=== PATIENT | female | born 1995 | race Caucasian/White ===

== ENCOUNTER 2017-09-30 12:55 | Observation (INO) | payer OTHER ==
[~2017-09-30 12:55] MED LIST: ROCURONIUM BROMIDE INJ 50 MG/5 ML VIAL IV ONE; SUCCINYLCHOLINE CHLORIDE INJ 200 MG/10 ML VIAL ONE
--- NOTE | 2017-09-30 13:57 | ER Document Report ---
ED Medical Screen (RME) - General Chief Complaint: Abdominal Pain Stated Complaint: ABDOMINAL PAIN,NAUSEA Time Seen by Provider: 09/30/17 13:53 TRAVEL OUTSIDE OF THE [place] IN LAST 30 DAYS: No - HPI Patient complains to provider of: Right-sided pain Onset: Other - 21-year-old female with a history of no known medical problems the presents for evaluation of pain along the right side which developed yesterday after eating with some associated nausea and episodes of emesis. Through the night the pain seems to intensify to her and she has had difficulty in eating or drinking it has not changed the character of her pain however. She denies any previous episodes like this. Nothing is seemed to make it any better. She has not taken anything to try and make it better. Denies any past surgical history. Denies fevers or chills - Related Data Allergies/Adverse Reactions: No Known Allergies Allergy (Verified 09/30/17 12:55) Past Medical History - Social History Chew tobacco use (# tins/day): No Frequency of alcohol use: Occasional Drug Abuse: None - Past Medical History Cardiac Medical History: Reports: Hx Hypertension Renal/ Medical History: Denies: Hx Peritoneal Dialysis - Immunizations Immunizations up to date: Yes Hx Diphtheria, Pertussis, Tetanus Vaccination: Yes Physical Exam - Vital signs Vitals: Temp Pulse Resp BP Pulse Ox 99.2 F 101 H 18 122/77 98 09/30/17 13:08 09/30/17 13:08 09/30/17 13:08 09/30/17 13:08 09/30/17 13:08 Course - Re-evaluation Re-evalutation: 09/30/17 13:56 This is a 21-year-old female presents for evaluation of right upper quadrant abdominal pain with associated nausea and vomiting. She has no history of nonsurgical problems cholecystitis cholelithiasis or risk factors for thromboembolic disease. Her period was 6 days late however she started yesterday. On examination she is in some discomfort she does have tenderness in the right upper quadrant slightly lateral to true Figueroa's's point though there is tenderness to palpation over the gallbladder. Given her constellation of symptoms will obtain CMP CBC lipase urinalysis urine and right upper quadrant ultrasound will defer further disposition determination to secondary provider. - Vital Signs Vital signs: Temp Pulse Resp BP Pulse Ox 99.2 F 101 H 18 122/77 98 08/25/18 13:08 09/30/17 13:08 09/30/17 13:08 09/30/17 13:08 09/30/17 13:08
[2017-09-30 14:42] LABS: ABSOLUTE BASOPHILS # (AUTO) 0.1 10^3/uL (0.0-0.2); ABSOLUTE EOSINOPHILS # (AUTO) 0.1 10^3/uL (0.0-0.6); ABSOLUTE LYMPHOCYTES (AUTO) 3.9 10^3/uL (0.5-4.7); ABSOLUTE NEUT (AUTO) 4.7 10^3/uL (1.7-8.2); BASOPHILS % (AUTO) 0.9 % (0-2); EOSINOPHILS % (AUTO) 0.6 % (0-6); HEMATOCRIT 42.7 % (36.0-47.0); HEMOGLOBIN 14.8 g/dL (12.0-15.5); LYMPHOCYTES % (AUTO) 39.9 % (13-45); MEAN CORPUSCULAR HEMOGLOBIN 28.4 pg (27.0-33.4); MEAN CORPUSCULAR HGB CONC 34.8 g/dL (32.0-36.0); MEAN CORPUSCULAR VOLUME 82 fl (80-97); MONOCYTES % (AUTO) 10.1 % (3-13); PLATELET COUNT 250 10^3/uL (150-450); RED BLOOD COUNT 5.23 10^6/uL (3.72-5.28); SEGMENTED NEUTROPHILS % (AUTO) 48.5 % (42-78); TOTAL CELLS COUNTED % (AUTO) 100 %; WHITE BLOOD COUNT 9.8 10^3/uL (4.0-10.5)
[2017-09-30 14:51] LABS: APPEARANCE,URINE CLEAR; BILIRUBIN,URINE NEGATIVE (NEGATIVE); COLOR,URINE YELLOW; GLUCOSE, URINE NEGATIVE (NEGATIVE); KETONES,URINE NEGATIVE (NEGATIVE); LEUKOCYTE ESTERASE,URINE NEGATIVE (NEGATIVE); NITRITE,URINE NEGATIVE (NEGATIVE); PROTEIN,URINE NEGATIVE (NEGATIVE); URINE SPECIFIC GRAVITY 1.023; UROBILINOGEN,URINE NEGATIVE mg/dL (<2.0)
[2017-09-30 14:59] LABS: ALANINE AMINOTRANSFERASE 43 U/L (9-52); ALBUMIN 4.3 g/dL (3.5-5.0); ALKALINE PHOSPHATASE 72 U/L (38-126); ANION GAP 14 (5-19); ASPARTATE AMINO TRANSFERASE 24 U/L (14-36); BILIRUBIN,DIRECT 0.2 mg/dL (0.0-0.4); BILIRUBIN,TOTAL 0.9 mg/dL (0.2-1.3); BLOOD UREA NITROGEN 7 mg/dL (7-20); CALCIUM 9.6 mg/dL (8.4-10.2); CARBON DIOXIDE 24 mmol/L (22-30); CHLORIDE 106 mmol/L (98-107); GLUCOSE 88 mg/dL (75-110); LIPASE 47.9 U/L (23-300); POTASSIUM 3.8 mmol/L (3.6-5.0); SODIUM 143.9 mmol/L (137-145); TOTAL PROTEIN 8.1 g/dL (6.3-8.2)
--- NOTE | 2017-09-30 15:03 | RADIOLOGY REPORT (SQ) ---
EXAM DESCRIPTION: U/S ABDOMEN LIMITED W/O DOP COMPLETED DATE/TIME: 09/30/2017 2:44 pm REASON FOR STUDY: query cholecystitis COMPARISON: None. TECHNIQUE: Dynamic and static grayscale images acquired of the abdomen and recorded on PACS. Additio nal selected color Doppler and spectral images recorded. LIMITATIONS: None. FINDINGS: PANCREAS: No masses. Visualized pancreatic duct normal caliber. LIVER: No masses. Echotexture normal. LIVER VASCULATURE: Normal directional flow of the main portal vein and hepatic veins. GALLBLADDER: No stones. Normal wall thickness. No pericholecystic fluid. ULTRASOUND-DETECTED ORTIZ'S SIGN: Negative. INTRAHEPATIC DUCTS AND COMMON DUCT: CBD and intrahepatic ducts normal caliber. No filling defects. INFERIOR VENA CAVA: Normal flow. AORTA: No aneurysm. RIGHT KIDNEY: Normal size. Normal echogenicity. No solid or suspicious masses. No hydronephrosis. No calcifications. PERITONEAL AND RIGHT PLEURAL SPACE: No ascites or effusions. OTHER: No other significant findings. IMPRESSION: NORMAL RIGHT UPPER QUADRANT ULTRASOUND. TECHNICAL DOCUMENTATION: JOB ID: [id number] [employer]- All Rights Reserved Reading location - IP/workstation name: [email or web address]
--- NOTE | 2017-09-30 15:12 | ER Document Report ---
ED GI/ - General Chief Complaint: Abdominal Pain Stated Complaint: ABDOMINAL PAIN,NAUSEA Time Seen by Provider: 09/30/17 13:53 Mode of Arrival: Ambulatory Information source: Patient TRAVEL OUTSIDE OF THE [place] IN LAST 30 DAYS: No - HPI Patient complains to provider of: Abdominal pain, Vomiting Onset: Yesterday Timing/Duration: Gradual, Persistent, Worse Quality of pain: Sharp, Stabbing Severity at maximum: Severe Severity in ED: Moderate Pain Level: 3 Location: RLQ, Right flank Associated symptoms: Nausea, Vomiting Exacerbated by: Denies Relieved by: Denies Notes: 09/30/17 15:11 Patient is a 21-year-old female presenting to the emergency room complaining of right-sided abdominal pain that started sometime yesterday and worsened this morning, is associated with nausea and vomiting, she denies any vaginal discharge or irregular bleeding, no dysuria or hematuria, no history of similar symptoms previously, no aggravating or alleviating symptoms, no abdominal surgeries in the past - Related Data Allergies/Adverse Reactions: No Known Allergies Allergy (Verified 09/30/17 12:55) Past Medical History - General Information source: Patient - Social History Smoking Status: Current Some Day Smoker Chew tobacco use (# tins/day): No Frequency of alcohol use: Occasional Drug Abuse: None Family History: Arthritis, DM, Hypertension, Malignancy Patient has suicidal ideation: No Patient has homicidal ideation: No - Past Medical History Cardiac Medical History: Reports: Hx Hypertension Renal/ Medical History: Denies: Hx Peritoneal Dialysis - Immunizations Immunizations up to date: Yes Hx Diphtheria, Pertussis, Tetanus Vaccination: Yes Review of Systems - Review of Systems Constitutional: No symptoms reported EENT: No symptoms reported Cardiovascular: No symptoms reported Respiratory: No symptoms reported Gastrointestinal: See HPI Genitourinary: No symptoms reported Female Genitourinary: No symptoms reported Musculoskeletal: No symptoms reported Skin: No symptoms reported Hematologic/Lymphatic: No symptoms reported Neurological/Psychological: No symptoms reported -: Yes All other systems reviewed and negative Physical Exam - Vital signs Vitals: Temp Pulse Resp BP Pulse Ox 99.2 F 101 H 18 122/77 98 09/30/17 13:08 09/30/17 13:08 09/30/17 13:08 09/30/17 13:08 09/30/17 13:08 Interpretation: Normal - General General appearance: Appears well, Alert - HEENT Head: Normocephalic, Atraumatic Eyes: Normal Pupils: PERRL - Respiratory Respiratory status: No respiratory distress Chest status: Nontender Breath sounds: Normal Chest palpation: Normal - Cardiovascular Rhythm: Regular Heart sounds: Normal auscultation Murmur: No - Abdominal Inspection: Normal Distension: No distension Bowel sounds: Normal Tenderness: Tender, McBurney's point. No: Guarding, Rebound Organomegaly: No organomegaly - Back Back: Normal, Nontender - Extremities General upper extremity: Normal inspection, Nontender, Normal color, Normal ROM , Normal temperature General lower extremity: Normal inspection, Nontender, Normal color, Normal ROM , Normal temperature, Normal weight bearing. No: Bret's sign - Neurological Neuro grossly intact: Yes Cognition: Normal Orientation: AAOx4 Emy Coma Scale Eye Opening: Spontaneous Cornucopia Coma Scale Verbal: Oriented Cornucopia Coma Scale Motor: Obeys Commands Cornucopia Coma Scale Total: 15 Speech: Normal Motor strength normal: LUE, RUE, LLE, RLE Sensory: Normal - Psychological Associated symptoms: Normal affect, Normal mood - Skin Skin Temperature: Warm Skin Moisture: Dry Skin Color: Normal Course - Re-evaluation Re-evalutation: 09/30/17 18:35 CT scan consistent with acute appendicitis, findings discussed with patient at bedside as well as with surgeon, requests that she be given IV fluid bolus and IV maintenance fluids at 150 normal saline per hour, as well as a dose of Zofran , surgeon to come see patient in the department and take to the OR for appendectomy - Vital Signs Vital signs: Temp Pulse Resp BP Pulse Ox 98.7 F 78 18 105/56 L 99 09/30/17 17:43 09/30/17 17:43 09/30/17 17:43 09/30/17 17:43 09/30/17 17:43 - Laboratory Result Diagrams: 09/30/17 14:24 09/30/17 14:24 Laboratory results interpreted by me: 09/30/17 14:24 Urine Blood MODERATE H - Diagnostic Test Radiology reviewed: Image reviewed, Reports reviewed Discharge - Discharge Clinical Impression: Appendicitis Qualifiers: Appendicitis type: acute appendicitis Acute appendicitis type: with localized peritonitis Qualified Code(s): K35.3 - Acute appendicitis with localized peritonitis Condition: Stable Disposition: ADMITTED INPATIENT Admitting Provider: Surgicalist Unit Admitted: Surgical Floor
[2017-09-30] MEDS ORDERED: NORMAL SALINE 1000 ML 1,000 ML IV ONE ×2 (16:31→17:05)
[2017-09-30] MEDS ORDERED: ONDANSETRON HCL INJ/PF 4 MG/2 ML SDV IV ONE (16:31)
--- NOTE | 2017-09-30 16:45 | RADIOLOGY REPORT (SQ) ---
EXAM DESCRIPTION: CT ABD/PELVIS WITH IV ONLY COMPLETED DATE/TIME: 09/30/2017 4:28 pm REASON FOR STUDY: rlq pain COMPARISON: None. TECHNIQUE: CT scan of the abdomen and pelvis performed using helical scanning technique with dynamic intravenous contrast injection. No oral contrast. Images reviewed with lung, soft tissue, and bone windows. Reconstructed coronal and sagittal MPR images reviewed. Delayed images for evaluation of the urinary system also acquired. All images stored on PACS. All CT scanners at this facility use dose modulation, iterative reconstruction, and/or weight based d osing when appropriate to reduce radiation dose to as low as reasonably achievable (ALARA). [facility]: Dose Right [facility]: CareDose [facility]: Dose Right [facility]: Teradose 4D [facility]: Panjo CONTRAST TYPE AND DOSE: contrast/concentration: Isovue 350.00 mg/ml; Total Contrast Delivered: 96.0 ml; Total Saline Delivered: 69.0 ml RENAL FUNCTION: BUN 7; creatinine 0.62 RADIATION DOSE: CT Rad equipment meets quality standard of care and radiation dose reduction techniq ues were employed. CTDIvol: 11.6 - 16.6 mGy. DLP: 1461 mGy-cm.. LIMITATIONS: None. FINDINGS: LOWER CHEST: No significant findings. No nodules or infiltrates. LIVER: Normal size. No masses. No dilated ducts. SPLEEN: Normal size. No focal lesions. PANCREAS: No masses. No significant calcifications. No adjacent inflammation or peripancreatic fluid collections. Pancreatic duct not dilated. GALLBLADDER: No identified stones by CT criteria. No inflammatory changes to suggest cholecystitis. ADRENAL GLANDS: No significant masses or asymmetry. RIGHT KIDNEY AND URETER: No solid masses. No significant calcifications. No hydronephrosis or hyd roureter. LEFT KIDNEY AND URETER: No solid masses. No significant calcifications. No hydronephrosis or hydr oureter. AORTA AND VESSELS: No aneurysm. No dissection. Renal arteries, SMA, celiac without stenosis. RETROPERITONEUM: No retroperitoneal adenopathy, hemorrhage or masses. BOWEL AND PERITONEAL CAVITY: Periappendiceal inflammatory changes are present. No focal fluid collec tion. No free air. The small and large bowel are unremarkable. APPENDIX: Dilated, measuring up to 1.5 cm, hyperemic, and with surrounding mesenteric fat stranding. PELVIS: No mass. No free fluid. Normal bladder. ABDOMINAL WALL: No masses. No hernias. BONES: No significant or acute findings. OTHER: No other significant finding. IMPRESSION: Uncomplicated appendicitis. TECHNICAL DOCUMENTATION: JOB ID: [id number] Quality ID # [id number]: Final reports with documentation of one or more dose reduction techniques (e.g., Au tomated exposure control, adjustment of the mA and/or kV according to patient size, use of iterative reconstruction technique) 2010 [employer]- All Rights Reserved Reading location - IP/workstation name: [email or web address]
[2017-09-30] MEDS ORDERED: PIPERACILLIN/TAZOBACTAM 4.5 GM VIAL IV ONE (17:06)
[2017-09-30] MEDS ORDERED: FENTANYL CITRATE INJ/PF 250 MCG/5 ML AMPULE ONE (17:55)
[2017-09-30] MEDS ORDERED: ONDANSETRON HCL INJ/PF 4 MG/2 ML SDV ONE (17:56)
[2017-09-30] MEDS ORDERED: DEXAMETHASONE SOD PHOSPHATE INJ 4 MG/1 ML VIAL ONE (17:56)
[2017-09-30] MEDS ORDERED: MIDAZOLAM 2 MG/2 ML INJ ONE (17:56)
[2017-09-30] MEDS ORDERED: PROPOFOL INJ 200 MG/20 ML VIAL IV ONE (17:56)
[2017-09-30] MEDS ORDERED: ACETAMINOPHEN 1,000 MG/100 ML RTUPB IV ONE (17:56)
[2017-09-30] MEDS ORDERED: GLUCAGON,HUMAN RECOMB 1 MG INJ SUBCUT PRN (18:13)
[2017-09-30] MEDS ORDERED: DEXTROSE 50%-WATER 25 GM/50 ML DISP.SYRIN IV PRN ×2 (18:13)
[2017-09-30] MEDS ORDERED: ONDANSETRON HCL INJ/PF 4 MG/2 ML SDV IV PRN (18:13)
[2017-09-30] MEDS ORDERED: DEXTROSE 40% GEL 15 GM TUBE PO PRN ×2 (18:13)
--- NOTE | 2017-09-30 18:13 | PDOC H&P ---
History of Present Illness Admission Date/PCP: 09/30/17 17:40 YEMI RUST NP Patient complains of: Right Lateral abdominal pain History of Present Illness: MINERVA MACIAS is a 21 year old female with a 1 day hx of Right lateral abdominal pain, nausea. seen in the Er today. A CT scan A/p has been done and significant for acute appendicitis, uncomplicated. She denies fever, chills, vomiting, change of bowel function. Past Medical History Medical History: None Cardiac Medical History: Reports: Hypertension Past Surgical History Past Surgical History: Reports: None Social History Smoking Status: Current Some Day Smoker Frequency of Alcohol Use: Rare Drugs: None Hx Prescription Drug Abuse: No Family History Family History: Arthritis, DM, Hypertension, Malignancy Parental Family History Reviewed: No Children Family History Reviewed: NA Sibling(s) Family History Reviewed.: No Medication/Allergy Home Medications: Vits96/Iron Fum/Folic [ Tablet] 1 tab PO DAILY 10/26/13 Ibuprofen [Motrin 800 mg Tablet] 800 mg PO Q8 #30 tablet 10/30/13 Doxycycline Hyclate 100 mg PO BID #14 capsule 09/20/14 Metronidazole [Flagyl 500 mg Tablet] 500 mg PO BID #14 tablet 09/20/14 Penicillin V Potassium [Penicillin Vk 500 mg Tablet] 500 mg PO BID #20 tablet Allergies/Adverse Reactions: No Known Allergies Allergy (Verified 09/30/17 12:55) Physical Exam Vital Signs: Temp Pulse Resp BP Pulse Ox 99.2 F 101 H 18 122/77 98 09/30/17 13:08 09/30/17 13:08 09/30/17 13:08 09/30/17 13:08 09/30/17 13:08 Intake & Output 09/29/17 09/30/17 10/01/17 06:59 06:59 06:59 Intake Total 1000 Balance 1000 General appearance: PRESENT: no acute distress Head exam: PRESENT: atraumatic Eye exam: PRESENT: EOMI Mouth exam: PRESENT: moist, neck supple Neck exam: PRESENT: full ROM Respiratory exam: PRESENT: clear to auscultation diana Cardiovascular exam: PRESENT: RRR GI/Abdominal exam: PRESENT: hypoactive bowel sounds, soft, tenderness - in the Right lateral and R lower quadrants Rectal exam: PRESENT: deferred Extremities exam: PRESENT: full ROM Musculoskeletal exam: PRESENT: full ROM, normal inspection Neurological exam: PRESENT: alert, awake, oriented to time, oriented to situation Psychiatric exam: PRESENT: normal mood Skin exam: PRESENT: dry, warm Results Impressions: Abdomen Ultrasound 09/30/17 13:55 IMPRESSION: NORMAL RIGHT UPPER QUADRANT ULTRASOUND. Abdomen/Pelvis CT 09/30/17 15:08 IMPRESSION: Uncomplicated appendicitis. Assessment & Plan - Diagnosis (1) Appendicitis Qualifiers: Appendicitis type: acute appendicitis Acute appendicitis type: with localized peritonitis Qualified Code(s): K35.3 - Acute appendicitis with localized peritonitis - Plan Summary Plan Summary: A/ Right lower and lateral abdominal pain x 24 hours acute appendicitis, uncomplicated on CT scan A/P normal blood work and UA P/ Laparoscopic appendectomy, possible open tonight. IVF bolus and maintenance Zosyn 3.375 gr IVPB now Procedure, risk, benefits, complications explained to the patient, she understands, and decides to proceed.
[2017-09-30] MEDS ORDERED: FAMOTIDINE INJ/PF 20 MG/2 ML SDV IV SCH ×2 (18:15→22:00)
[2017-09-30] MEDS ORDERED: PROMETHAZINE HCL INJ 25 MG/1 ML VIAL IV PRN (19:40)
[2017-09-30] MEDS ORDERED: MEPERIDINE HCL/PF INJ 25 MG/1 ML DISP.SYRIN IV PRN (19:40)
[2017-09-30] MEDS ORDERED: DIPHENHYDRAMINE HCL 50 MG/ML VIAL IV PRN (19:40)
[2017-09-30] MEDS ORDERED: FENTANYL CITRATE INJ/PF 100 MCG/2 ML AMPUL IV PRN ×3 (19:40)
[2017-09-30] MEDS ORDERED: BUPIVACAINE HCL 0.5%-EPI 1:200000 INJ/PF 30 ML VIAL ONE (20:03)
[2017-09-30] MEDS: FENTANYL CITRATE INJ/PF 100 MCG/2 ML AMPUL ONE ×2 (21:26→21:30)
[2017-09-30] MEDS ORDERED: KETOROLAC TROMETHAMINE INJ/PF 30 MG/1 ML SDV ONE (21:28)
--- NOTE | 2017-09-30 21:41 | Operative Report ---
Nonrecallable Operative Report DATE OF SURGERY: 09/30/17 PREOPERATIVE DIAGNOSIS: acute, non-perforated appendicitis POSTOPERATIVE DIAGNOSIS: same OPERATION: laparoscopic appendectomy SURGEON: ESME SLAUGHTER ANESTHESIA: GA - plus 15 mL lidocaine 1% TISSUE REMOVED OR ALTERED: APPENDIX COMPLICATIONS: NONE ESTIMATED BLOOD LOSS: 0 INTRAOPERATIVE FINDINGS: ACUTELY INFLAMED APPENDIX W/O PERFORATION PROCEDURE: see dictation
--- NOTE | 2017-09-30 22:56 | OPERATIVE REPORT E ---
Operative Report NAME: MINERVA MACIAS : 1995 AGE: 21Y DATE OF SURGERY: 09/30/2017 ROOM: 209 PREOPERATIVE DIAGNOSIS: ACUTE APPENDICITIS, UNCOMPLICATED. POSTOPERATIVE DIAGNOSIS: ACUTE APPENDICITIS, UNCOMPLICATED. OPERATION: Laparoscopic appendectomy. SURGEON: ESME SLAUGHTER M.D. PRINCIPAL JAVA SOFTWARE ENGINEER: None. ESTIMATED BLOOD LOSS: None. COMPLICATIONS: None. ANESTHESIA: General plus 25 mL of 1% lidocaine with epinephrine. FLUIDS: 600 ml. DRAINS: None. INDICATION AND FINDINGS: This is a healthy 21-year-old female who presented to the emergency room with a 24-hour history of right lower quadrant pain. A CAT scan was done, revealing acute appendicitis, uncomplicated. The decision was made to take the patient to surgery to undergo a laparoscopic appendectomy, possibly open. Procedure, risks, benefits were discussed with the patient, she understood all of them and decided to proceed. PROCEDURE: The procedure was done in the operating room. Patient was placed in the supine position. General anesthesia induced by endotracheal intubation. Abdomen prepped and draped in the usual fashion. An incision was made just above the umbilicus. A 5-mm port with Optiview adapter and scope was inserted through the incision, the abdominal wall into the peritoneal cavity. Pneumoperitoneum was then established, and under direct visualization, a 5-mm port was inserted in the right upper quadrant through a skin incision. The scope was then removed from the midline port and placed in the right upper quadrant port. The midline port was removed, replaced by a 12-mm port. The 5-mm port was inserted into the left lower quadrant of the abdomen through a skin incision done with a #15 blade. The patient was then placed into Trendelenburg position with the right side elevated. Appendix was identified and found to be nonperforated and inflamed. This was stretched upwards. The mesoappendix was divided with LigaSure and appendix was stapled at the base with an endo OLAF. It was removed from the peritoneal cavity with an Endo bag. Pneumoperitoneum was then reestablished. The stapled line was examined and found to be intact. Under direct visualization, using a fascia closure device, an 0 Vicryl tjgoem-ks-cqibp suture was placed through the umbilical fascia defect. The suture was left untied. All instruments were removed. The pneumoperitoneum was released. The ports were removed. The fascial defect in the umbilicus was closed with the previously placed 0 Vicryl [id number]-zh-ohvpb suture. All skin incisions were closed with 4-0 Monocryl running subcuticular suture. Dermabond was applied. The patient tolerated the procedure well, extubated and transferred to the recovery room in satisfactory condition. DICTATING PHYSICIAN: ESME SLAUGHTER M.D. [id number] PHY#: [id number] ID: [id number] JOB#: [id number] ACCT: [id number] cc:ESME SLAUGHTER M.D. > MTDD
[2017-09-30] MEDS: MORPHINE SULFATE 10 MG/ML INJ IV PRN (23:26)
[2017-10-01] MEDS ORDERED: PIPERACILLIN/TAZOBACTAM 3.375 GM VIAL IV PRN
[2017-10-01] MEDS ORDERED: PIPERACILLIN/TAZOBACTAM 3.375 GM VIAL IV ONE (01:24)
[2017-10-01] MEDS: PIPERACILLIN SODIUM/TAZOBACTAM 3.375 GM in NORMAL SALINE 100 ML IV SCH ×2 (01:45→07:50)
[2017-10-01] MEDS: MORPHINE SULFATE 10 MG/ML INJ IV PRN (07:57)
--- NOTE | 2017-10-01 10:02 | PDOC PROGRESS REPORT ---
Subjective Progress Note for:: 10/01/17 Subjective:: no c/o, comfortable Reason For Visit: ACUTE UNCOMPLICATED APPENDITIS Physical Exam Vital Signs: Temp Pulse Resp BP Pulse Ox 97.9 F 69 18 99/45 L 97 10/01/17 05:10 10/01/17 05:10 10/01/17 05:10 10/01/17 05:10 10/01/17 05:10 Intake & Output 09/30/17 10/01/17 10/02/17 06:59 06:59 06:59 Intake Total 2240 Output Total 0 Balance 2240 Weight 90.6 kg General appearance: PRESENT: no acute distress Respiratory exam: PRESENT: clear to auscultation diana Cardiovascular exam: PRESENT: RRR GI/Abdominal exam: PRESENT: normal bowel sounds, soft, other - incision c/d/i Results Impressions: Abdomen Ultrasound 09/30/17 13:55 IMPRESSION: NORMAL RIGHT UPPER QUADRANT ULTRASOUND. Abdomen/Pelvis CT 09/30/17 15:08 IMPRESSION: Uncomplicated appendicitis. Assessment & Plan - Diagnosis (1) Appendicitis Qualifiers: Appendicitis type: acute appendicitis Acute appendicitis type: with localized peritonitis Qualified Code(s): K35.3 - Acute appendicitis with localized peritonitis Is this a current diagnosis for this admission?: Yes - Plan Summary Plan Summary: A/ POD#1 after laparoscopic appendectomy for acute appendicitis VSS, AF PE unremarkable P/ Home today Resume diet, meds Resume all activities without restrictions No wound care needed Shower only x 2 weeks, then can bathe F/u with Surgery office (MONIQUE Torre) in 2 weeks
[2017-10-01 10:24] VITALS: BP 100/54
--- NOTE | 2017-10-02 07:01 | DISCHARGE SUMMARY E ---
Discharge Summary NAME: MINERVA MACIAS : 1995 AGE: 21Y ADMITTED: 09/30/2017 DISCHARGED: 10/01/2017 DISCHARGE DIAGNOSIS: Acute appendicitis. PROCEDURE: On September 30, the patient underwent a laparoscopic appendectomy. COMPLICATIONS: None. FINAL DIAGNOSIS: Acute appendicitis. HOSPITAL COURSE: This is a healthy 21-year-old female who presented to the hospital with 24-hour history of right lower quadrant pain, intense nausea, found to have an uncomplicated and nonperforated acute appendicitis. Patient was taken to surgery the same day September 30 and the surgery was uneventful. Her postop course was uneventful. Vital signs remained stable. The patient was able to tolerate p.o. well. Physical exam was unremarkable. The abdomen is soft. The incisions are all clean, dry, and intact. DISCHARGE ORDERS: The patient is discharged home on October 01. She is given a followup appointment to Surgery Clinic in 2 weeks with Niru AMAYA. Resume regular diet and activities without limitations, shower only for 2 weeks, afterwards she can bathe. No wound care needed. Tylenol/Aleve as needed over the counter for pain. Miralax and Coreg as needed over the counter for constipation. DICTATING PHYSICIAN: ESME SLAUGHTER M.D. [id number] Y#: [id number] ID: [id number] JOB#: [id number] ACCT: [id number] cc:ESME SLAUGHTER M.D. [facility], > [facility]
== END 2017-10-01 11:23 | disposition home or self-care (01) ==
LOC: ER 12:55 → INTOOBSV 17:40 → EH 17:40 → 2N 18:50
PROVIDERS: ATTEND Surgery
PROC: 0DTJ4ZZ Resection of Appendix, Percutaneous Endoscopic Approach (ICD-10-PCS; principal; 2017-09-30 20:30)
DX: K35.80 Unspecified acute appendicitis (principal); K38.8 Other specified diseases of appendix; F17.200 Nicotine dependence, unspecified, uncomplicated
CPT/HCPCS: 99285; 36415; 83690; 85025; 81025; 80053; 81001; 88304 ×2; 76705; 74177; 44970; J2250; J3490 ×2; J1100; J3010 ×2; J1885; J2270 ×2; J0330; J2405; J7030; J2704; S0028; J2543 ×2; J0131; 840; G0378

== ENCOUNTER 2020-02-26 20:30 | Inpatient (IN) | payer BC, OTHER ==
[2020-02-26] MEDS ORDERED: RINGERS SOLUTION,LACTATED 500 ML IV ONE (20:36)
[2020-02-26] MEDS ORDERED: MAG HYDROX/AL HYDROX/SIMETH SUSP 30 ML UDCUP PO PRN ×2 (20:36→23:24)
[2020-02-26] MEDS ORDERED: OXYTOCIN/0.9 % SODIUM CHLORIDE 30 UNIT/500 ML RTUINJ IV PRN (20:36)
[2020-02-26] MEDS ORDERED: DINOPROSTONE 10 MG VAGINAL INSERT.SR PV ONE (20:36)
[2020-02-26] MEDS ORDERED: ZOLPIDEM TARTRATE 5 MG TABLET PO PRN (20:36)
[2020-02-26] MEDS ORDERED: ACETAMINOPHEN 325 MG TABLET PO PRN (20:36)
[2020-02-26] MEDS: RINGERS SOLUTION,LACTATED 1,000 ML IV PRN (21:00)
[2020-02-26] MEDS ORDERED: LIDOCAINE 1% INJ-PF (10 MG/ML) 30 ML SDV ONE (21:18)
[2020-02-26] MEDS ORDERED: OXYTOCIN 10 UNIT/ML VIAL ONE (21:18)
[2020-02-26] MEDS ORDERED: MISOPROSTOL 0.2 MG TABLET ONE (21:18)
[2020-02-26] MEDS ORDERED: OXYTOCIN/0.9 % SODIUM CHLORIDE 30 UNIT/500 ML RTUINJ ONE (21:18)
[2020-02-26] MEDS ORDERED: DINOPROSTONE 10 MG VAGINAL INSERT.SR ONE (21:19)
[2020-02-26 21:44] LABS: APPEARANCE,URINE CLOUDY; BILIRUBIN,URINE NEGATIVE (NEGATIVE); COLOR,URINE AMBER; GLUCOSE, URINE NEGATIVE (NEGATIVE); KETONES,URINE TRACE mg/dL (NEGATIVE); LEUKOCYTE ESTERASE,URINE LARGE (NEGATIVE); NITRITE,URINE NEGATIVE (NEGATIVE); PROTEIN,URINE 30 mg/dL (NEGATIVE); URINE SPECIFIC GRAVITY 1.023
[2020-02-26 21:44] LABS: ABSOLUTE LYMPHOCYTES (AUTO) 2.9 10^3/uL (0.5-4.7); ABSOLUTE MONOCYTES (AUTO) 0.9 10^3/uL (0.1-1.4); ABSOLUTE NEUT (AUTO) 7.5 10^3/uL (1.7-8.2); BASOPHILS % (AUTO) 0.2 % (0-2); EOSINOPHILS % (AUTO) 0.4 % (0-6); HEMATOCRIT 36.4 % (36.0-47.0); HEMOGLOBIN 12.6 g/dL (12.0-15.5); LYMPHOCYTES % (AUTO) 25.7 % (13-45); MEAN CORPUSCULAR HEMOGLOBIN 26.8 pg (27.0-33.4); MEAN CORPUSCULAR HGB CONC 34.6 g/dL (32.0-36.0); MEAN CORPUSCULAR VOLUME 78 fl (80-97); PLATELET COUNT 242 10^3/uL (150-450); RED BLOOD COUNT 4.68 10^6/uL (3.72-5.28); RED CELL DISTRIBUTION WIDTH 14.6 % (11.5-14.0); SEGMENTED NEUTROPHILS % (AUTO) 65.7 % (42-78); TOTAL CELLS COUNTED % (AUTO) 100 %; WHITE BLOOD COUNT 11.4 10^3/uL (4.0-10.5)
[2020-02-26 21:59] LABS: URINE AMPHETAMINES SCREEN NEGATIVE; URINE BARBITURATES SCREEN NEGATIVE; URINE BENZODIAZEPINES SCREEN NEGATIVE; URINE COCAINE SCREEN NEGATIVE; URINE MARIJUANA (THC) SCREEN NEGATIVE; URINE METHADONE SCREEN NEGATIVE
[2020-02-26 22:21] LABS: URINE PHENCYCLIDINE SCREEN NEGATIVE
--- NOTE | 2020-02-26 23:09 | Admission Physical ---
Datetime Report Generated by CPN: 02/26/2020 23:09 CURRENT ADMISSION Hx Assessment: The History has been Reviewed and is Current Chief Complaint: Scheduled Induction of Labor Chief Complaint Other: Scheduled for IOL due to post dates. Is 40 wks EGA today by first trimester US. Elective IOL. Admit Impression : Term, Intrauterine Admit Plan: Admit to Unit; Initiate Labor Induction Protocol; Initiate Labor Augmentation Protocol ALLERGIES Medication Allergies: No Medication Allergies: sulfamethoxazole (02/26/2020); trimethoprim (02/26/2020) Latex: No Latex Allergies OBSTETRICAL HISTORY EDC: 02/26/2020 00:00 : 2 Para: 1 Term: 1 : 0 SAB: 0 IAB: 0 Ectopic: 0 Livin Cesareans: 0 VBACs: 0 Multiple Births: 0 Gestational Diabetes: No Rh Sensitization: No Incompetent Cervix: No ANGIE: No Infertility: No ART Treatment: No Uterine Anomaly: No IUGR: No Hx Previous C/S: No Macrosomia: No Hx Loss/Stillborn: No PIH: No Hx : No Placenta Previa/Abruption: No Depression/PP Depression: No PTL/PROM: No Post Hemorrhage: No Current Procedures: Ultrasound; NST Obstetrical History Comments: 2013 viable baby boy G2- Current SEE RECORDS Alcohol: Yes Alcohol Comments: drank occasionally prior to Marijuana : No Cocaine: No Other Illicit Drugs: No Cigarettes: Former Smoker. [id number] Cigarette Frequency: < 5 per day Advised to Stop: Yes MEDICAL HISTORY Diabetes: No Blood Transfusion: No Pulmonary Disease (Asthma, TB): No Breast Disease: No Hypertension: No Tank Inspector Surgery: No Heart Disease: No Hosp/Surgery: Yes Autoimmune Disorder: No Anesthetic Complications: No Kidney Disease: No Abnormal Pap Smear: No Neuro/Epilepsy: No Psychiatric Disorders: No Other Medical Diseases: No Hepatitis/Liver Disease: No Significant Family History: No Varicosities/Phlebitis: No Trauma/Violence : No Thyroid Dysfunction: No Medical History Comments: Hx: appendectomy 2018, wisdom tooth extraction. 2013 INFECTIOUS HISTORY Gonorrhea: No Genital Herpes: No Chlamydia: No Tuberculosis: No Syphilis: No Hepatitis: No HIV/AIDS Exposure: No Rash or Viral Illness: No HPV: No PHYSICAL EXAM General: Normal HEENT: Normal Neurologic: Normal Thyroid: Normal Heart: Normal Lungs: Normal Breast: Normal Back: Normal Abdomen: Normal Genitourinary Exam: Normal Extremities: Normal DTRs: Normal Pelvic Type: Adequate Vital Signs: Reviewed; Within Normal Limits VAGINAL EXAM Dilatation: 1 Effacement: 0 Station: -3 Contraction Comments: no regular contractions FETUS A EGA: 40.0 Monitoring: External US FHR- Baseline: 145 Variability: Moderate 6-25bpm Accelerations: 15X15 Decelerations: None FHR Category: Category I Presentation: Vertex Admit Comment: G1 at 40.0 wks EGA for IOL -Admit to LDR _NPO and IVFs: LR at 125 cc/hr after 1 liter bolus LR -CEFM and TOco -GBS positive: PCN at delivery -Plan for PLANS FOR LABOR AND DELIVERY Labor and Delivery: None Pain Management: Epidural Feeding Preference: Formula Circumcision: Yes INFORMED CONSENT Informed Consent Obtained: Vaginal Delivery; Induction of Labor; Vacuum/Forceps Assist; Risks, Benefits and Alternatives Discussed Signature: with User ID: Kayden : with User ID: Kayden
[2020-02-26] MEDS ORDERED: ZOLPIDEM TARTRATE 5 MG TABLET ONE (23:28)
[2020-02-26] MEDS ORDERED: MAG HYDROX/AL HYDROX/SIMETH SUSP 30 ML UDCUP ONE (23:29)
[2020-02-27] MEDS ORDERED: MISOPROSTOL 0.2 MG TABLET ONE (08:01)
[2020-02-27] MEDS ORDERED: OXYTOCIN 10 UNIT/ML VIAL ONE (08:01)
[2020-02-27] MEDS ORDERED: OXYTOCIN/0.9 % SODIUM CHLORIDE 0 UNIT/0 ML RTUINJ ONE (08:02)
[2020-02-27] MEDS ORDERED: LIDOCAINE 1% INJ-PF (10 MG/ML) 30 ML SDV ONE (08:02)
[2020-02-27] MEDS ORDERED: PENICILLIN G POTASSIUM 5,000,000 UNIT in DEXTROSE 5%-WATER 100 ML IV ONE (09:30)
[2020-02-27] MEDS: RINGERS SOLUTION,LACTATED 1,000 ML IV PRN ×2 (11:42→14:43)
[2020-02-27] MEDS ORDERED: FENTANYL/BUPIVACAINE/NS/PF 300 MCG/150 ML RTUINJ EPI ONE (13:56)
[2020-02-27] MEDS ORDERED: ROPIVACAINE HCL 0.2% INJ/PF (2 MG/ML) 20 ML SDV ONE (13:56)
[2020-02-27] MEDS ORDERED: EPHEDRINE SULFATE INJ 50 MG/1 ML AMPULE ONE (13:56)
[2020-02-27] MEDS: PENICILLIN G POTASSIUM 2,500,000 UNIT in DEXTROSE 5%-WATER 50 ML IV SCH (14:35)
[2020-02-27] MEDS ORDERED: DIPH/PERTUSS(ACELL)/TETANUS VAC/PF 0.5 ML SYR (>=10YO) IM PRN (18:18)
[2020-02-27] MEDS ORDERED: ACETAMINOPHEN 325 MG TABLET PO PRN (18:18)
[2020-02-27] MEDS ORDERED: MAG HYDROX/AL HYDROX/SIMETH SUSP 30 ML UDCUP PO PRN (18:18)
[2020-02-27] MEDS ORDERED: DIPHENHYDRAMINE HCL 25 MG CAPSULE PO PRN (18:18)
[2020-02-27] MEDS ORDERED: OXYTOCIN/0.9 % SODIUM CHLORIDE 30 UNIT/500 ML RTUINJ IV PRN (18:18)
[2020-02-27] MEDS ORDERED: MEASLES,MUMPS&RUBELLA VACC/PF 0.5 ML VIAL SUBCUT PRN (18:18)
[2020-02-27] MEDS ORDERED: ZOLPIDEM TARTRATE 5 MG TABLET PO PRN (18:18)
[2020-02-27] MEDS ORDERED: PSEUDOEPHEDRINE HCL 30 MG TABLET PO PRN (18:18)
[2020-02-27] MEDS ORDERED: ACETAMINOPHEN WITH CODEINE #3 TABLET PO PRN ×2 (18:18)
[2020-02-27] MEDS ORDERED: MAGNESIUM HYDROXIDE SUSP 30 ML UDCUP PO PRN (18:18)
[2020-02-27] MEDS ORDERED: FAMOTIDINE 20 MG TABLET PO PRN (18:18)
[2020-02-27] MEDS ORDERED: VARICELLA VACC/PF (1350 UNIT/0.5 ML) 0.5 ML VIAL SUBCUT PRN (18:18)
[2020-02-27] MEDS ORDERED: DIBUCAINE 1% OINTMENT 28 GM TP PRN (18:18)
[2020-02-27] MEDS ORDERED: ACETAMINOPHEN 650 MG SUPP.RECT PR PRN (18:18)
[2020-02-27] MEDS ORDERED: GLYCERIN/WITCH HAZEL LEAF 1 EACH MED..WIPE TP PRN (18:18)
[2020-02-27] MEDS ORDERED: BENZOCAINE/MENTHOL AEROSOL SPRAY 56 ML TOP PRN (18:18)
--- NOTE | 2020-02-27 19:32 | Warning Signs in Babies ---
VOD Warning Signs Datetime Report Generated by [facility]: 02/27/2020 19:32 VOD#608 -Warning Signs in Babies: Viewed with Parent(s)/Family (02/27/2020 19:14:Tere Garcia RN)
--- NOTE | 2020-02-27 20:55 | Birth Certificate Data ---
Cert Data Datetime Report Generated by CPN: 02/27/2020 20:55 CERTIFICATE DATA Delivery Provider: Edgar Jules MD (02/26/2020 19:56:Edgar Jules MD ([facility])) 47a. Care: Yes (02/26/2020 19:56:Jojo Kaufman RN) 47b. Date of First Visit: 08/27/2019 00:00 (02/26/2020 19:56:Jojo Kaufman RN) 47c. Date of Last Visit: 02/26/2020 00:00 (02/26/2020 19:56:Mercedes Padilla RN) 47d. Number of Visits: 10 (02/26/2020 19:56:Jojo Kaufman RN) 48a. Number of Prev Live Births: 1 (02/26/2020 19:56:Jojo Kaufman RN) 48b. Now Livin (02/26/2020 19:56:Jojo Kaufman RN) 48c. Live Births Now : 0 (02/26/2020 19:56:QS system process) 48d. Date of Last Live : 10/29/2013 00:00 (02/26/2020 19:56:Jojo Kaufman RN) 48e. Losses: 0 (02/26/2020 19:56:Jojo Kaufman RN) RISK FACTORS IN THIS 49a. Diabetes: No (02/26/2020 19:56:Mercedes Padilla RN) 49b. Hypertension: No (02/26/2020 19:56:Mercedes Padilla RN) 49c. Previous Births: 0 (02/26/2020 19:56:Jojo Kaufman RN) 49d. Stillborns: No (02/26/2020 19:56:Mercedes Padilla RN) 49d. IUGR: No (02/26/2020 19:56:Mercedes Padilla RN) 49e. Infertility Treatment: No (02/26/2020 19:56:Mercedes Padilla RN) 49f. Previous Cesareans: 0 (02/26/2020 19:56:Jojo Kaufman RN) Mother's Height 50b. Height Inches: 64 (02/26/2020 20:49:QS system process) Mother's Weight 51a. Pre- Weight (lbs): 205 (02/26/2020 19:56:Jojo Kaufman RN) 51b. Weight at Delivery (lbs): 196 (02/26/2020 20:49:QS system process) 52. Dt Last Normal Menses Began: 06/06/2019 00:00 (02/26/2020 19:56:Jojo Kaufman RN) Infections Present/Treated 53a. Gonorrhea: No (02/26/2020 19:56:Mercedes Padilla RN) Results this Hospital Visit : Negative (02/26/2020 19:56:Jojo Kaufman RN) 53b. Syphilis: No (02/26/2020 19:56:Mercedes Padilla RN) Results this Hospital Visit: NONREACTIVE (02/26/2020 21:20:QS system process) 53c. Chlamydia: No (02/26/2020 19:56:Mercedes Padilla RN) Results this Hospital Visit: Negative (02/26/2020 19:56:Jojo Kaufman RN) 53d. Hepatitis B: No (02/26/2020 19:56:Mercedes Padilla RN) Results this Hospital Visit: Negative (02/26/2020 19:56:Jojo Kaufman RN) 53e. Hepatitis C: Negative (02/26/2020 19:56:Jojo Kaufman RN) 53h. Mother Tested for HBsAG: Yes (02/26/2020 19:56:Jojo Kaufman RN) 53i. Date Tested: 08/30/2019 00:00 (02/26/2020 19:56:Jojo Kaufman RN) 53j. Test Result: Negative (02/26/2020 19:56:Jojo Kaufman RN) Obstetric Procedures 54a, b, c. Obstetric Procedures: Ultrasound; NST (02/26/2020 19:56:Jojo Kaufman RN) Cigarette Smoking Cigarette Smoking: Former Smoker. [id number] (02/26/2020 19:56:Mercedes Padilla RN) 55a. 3 Months Before Preg - Ci (02/26/2020 19:56:Mercedes Padilla RN) 55b. 1st Trimester of Preg- Ci (02/26/2020 19:56:Mercedes Padilla RN) 55c. 2nd Trimester of Preg- Ci (02/26/2020 19:56:Mercedes Padilla RN) 55d. 3rd Trimester of Preg- Ci (02/26/2020 19:56:Mercedes Padilla RN) Onset of Labor 56a. PROM >12 Hrs: 2.37 (02/27/2020 15:50:QS system process) 56b. Precipitous Labor <3 Hrs: 4 (02/26/2020 19:56:QS system process) 56c. Prolonged Labor > 20 Hrs: 4 (02/26/2020 19:56:QS system process) 57a. Induction of Labor: Induction (02/26/2020 19:56:Monique Dejesus RN) 57a. Induction of Labor: Cervidil (02/26/2020 19:56:Monique Dejesus RN) 57c. Non-Vertex Presentation A: Vertex (02/26/2020 19:56:Monique Dejesus RN) 57d. Steroids - Lung Mat: None (02/26/2020 19:56:Monique Dejesus RN) 57d. Steroids - Lung Mat: Not Applicable (02/26/2020 19:56:Monique Dejesus RN) 57e. Antibiotics During Labor: 02/27/2020 14:35 (02/26/2020 19:56:Monique Dejesus RN) 57f. Mat [place] or Temp >100.4: 98.2 (02/26/2020 19:56:Monique Dejesus RN) 57g. Moderate/Heavy Meconium: Clear (02/27/2020 15:50:Monique Dejesus RN) 57h. Intolerance of Labor: N/A (02/26/2020 19:56:Monique Dejesus RN) : N/A (02/26/2020 19:56:Monique Dejesus RN) 57i. Epidural/Spinal Anesthesia: Epidural (02/26/2020 19:56:Monique Dejesus RN) Method of Delivery 58a. Forceps - Unsuccessful A: N/A (02/26/2020 19:56:Monique Dejesus RN) 58b. Vacuum - Unsuccessful A: N/A (02/26/2020 19:56:Monique Dejesus RN) 58c. Presentation at 58c. Presentation at - A : Vertex (02/26/2020 19:56:Monique Dejesus RN) 58c. Presentation at - A : N/A (02/26/2020 19:56:Monique Dejesus RN) 58c. Presentation at - A : Cephalic (02/26/2020 19:56:Edgar Jules MD ([facility])) Final Route and Method of Del 58d. Baby A Route/Delivery: Vaginal (02/27/2020 18:12:Monique Dejesus RN) 58e. Trial of Labor Attempted: No (02/26/2020 19:56:Monique Dejesus RN) 58e. Trial of Labor Attempted A: N/A (02/26/2020 19:56:Monique Dejesus RN) 58e. Trial of Labor Attempted B: N/A (02/26/2020 19:56:Monique Dejesus RN) Maternal Morbidity 59b. 3rd or 4th Degree Lacs: None (02/26/2020 19:56:Edgar Jules, MD ([facility])) Birthweight Baby A: 3560 (02/26/2020 19:56:Gloria Quinn RN) 60a. Pounds : 7 (02/26/2020 19:56:QS system process) 60b. Ounces: 14 (02/26/2020 19:56:QS system process) 61. GA at Delivery Baby A: 40.1 (02/26/2020 19:56:Monique Oleg RN) : Full Term- 39- 40.6 Weeks (02/26/2020 19:56:QS system process) 62a. 5 Minute Baby A: 9 (02/26/2020 19:56:QS system process)
--- NOTE | 2020-02-27 20:55 | Delivery Summary ---
Del Sum A-C Datetime Report Generated by CPN: 02/27/2020 20:55 DELIVERY PERSONNEL DELIVERY PERSONNEL: [id number] Delivery Doctor:: Edgar Jules MD Labor and Delivery Nurse:: Monique Oleg, RN Nursery Nurse:: Roslyn Trevino, TIMOTHY Donor Services Technician/DEVOPS DEVELOPER: Mercedes Johnson, ST MATERNAL INFORMATION Delivery Anesthesia: Epidural Medications After Delivery: Pitocin 30 Units in 500ml NS/D5W Delivery QBL: 150 Maternal Complications: None LABOR SUMMARY EDC: 02/26/2020 00:00 No. Babies in Womb: 1 Attempted: No Labor Anesthesia: Epidural LABOR INFORMATION Reason for Induction: Not Applicable Onset of Labor: 02/27/2020 13:50 Complete Dilatation: 02/27/2020 17:39 Cervical Ripening Agents: Cervidil Oxytocin: Induction Group B Beta Strep: Positive Antibiotics # of Doses: 2 Antibiotics Time of Last Dose: 02/27/2020 14:35 Name of Antibiotic Given: PCN G Steroids Given: None Reason Steroids Not Administered: Not Applicable MEMBRANES Membranes Rupture Method: Spontaneous Rupture of Membranes: 02/27/2020 15:50 Length of Rupture (hr): 2.37 Amniotic Fluid Color: Clear Amniotic Fluid Amount: Small Amniotic Fluid Odor: Normal STAGES OF LABOR Stage 1 hr: 3 Stage 1 min: 49 Stage 2 hr: 0 Stage 2 min: 33 Stage 3 hr: 0 Stage 3 min: 4 Total Time in Labor hr: 4 Total Time in Labor min: 26 VAGINAL DELIVERY Episiotomy: None Laceration #1: None Laceration Extension #1: N/A Laceration Repair: Not Applicable Sponge Count Correct: N/A Sharps Count Correct: N/A CSECTION DELIVERY Primary Indication: N/A Secondary Indication: N/A CSection Incidence: N/A Labor: N/A Elective: N/A CSection Incision: N/A BABY A INFORMATION Delivery Date/Time: 02/27/2020 18:12 Method of Delivery: Vaginal Nurse Controlled Delivery: No Born in Route : No : N/A Forceps: N/A Vacuum Extraction: N/A Shoulder Dystocia : No PRESENTATION/POSITION BABY A Presentation: Cephalic Cephalic Presentation: Vertex Vertex Position: Right Occipital Anterior Breech Presentation: N/A PLACENTA INFORMATION BABY A Placenta Delivery Time : 02/27/2020 18:16 Placenta Method of Delivery: Spontaneous Placenta Status: Delivered SCORES BABY A Heart Rate 1 min: >100 bpm Resp Effort 1 min: Good Cry Reflex Irritability 1 min: Cough or Sneeze or Pulls Away Muscle Tone 1 min: Active Motion Color 1 min: Body [place], Extremities Blue Resuscitation Effort 1 min: Tactile Stimulation SCORE 1 MIN: 9 Heart Rate 5 min: >100 bpm Resp Effort 5 min: Good Cry Reflex Irritability 5 min: Cough or Sneeze or Pulls Away Muscle Tone 5 min: Active Motion Color 5 min: Body [place], Extremities Blue Resuscitation Effort 5 min: N/A SCORE 5 MIN: 9 INFORMATION BABY A Gestational Age at Delivery: 40.1 Gestational Status: Full Term- 39- 40.6 Weeks Outcome : Liveborn Condition : Stable Sex: Male IDENTIFICATION BABY A Infant Verification Date/Time: 02/27/2020 18:34 ID Band Number: [id number] Mother's Name Verified: Yes RN Verifying Infant: Hardik Dejesus, RN Additional Verifying Personnel: Ezekiel Mckay, RNC WEIGHT/LENGTH BABY A Infant Birthweight (gm): 3560 Weight (lb): 7 Weight (oz): 14 Length (in): 20.00 Infant Length (cm): 50.80 CORD INFORMATION BABY A No. Cord Vessels: 3 Nuchal Cord : N/A Cord Blood Taken: Yes-For Eval (Mom's Blood Type - or O+) Suction: None ASSESSMENT BABY A Complications: None Physical Findings at Delivery: Within Normal Limits Respirations: Appears Normal Skin to Skin: Yes Transferred To: Remains with Mother BABY B INFORMATION : N/A SIGNATURES Signature: with User ID: [email or web address]
[2020-02-27] MEDS: IBUPROFEN 800 MG TABLET PO SCH (22:17)
[2020-02-28] MEDS: IBUPROFEN 800 MG TABLET PO SCH ×3 (05:36→21:12)
[2020-02-28 07:14] LABS: HEMATOCRIT 32.1 % (36.0-47.0); HEMOGLOBIN 11.1 g/dL (12.0-15.5); MEAN CORPUSCULAR HGB CONC 34.6 g/dL (32.0-36.0); MEAN CORPUSCULAR VOLUME 78 fl (80-97); PLATELET COUNT 211 10^3/uL (150-450); RED BLOOD COUNT 4.11 10^6/uL (3.72-5.28); RED CELL DISTRIBUTION WIDTH 14.9 % (11.5-14.0); WHITE BLOOD COUNT 12.4 10^3/uL (4.0-10.5)
[2020-02-28] MEDS: SENNOSIDES/DOCUSATE 8.6-50 MG 1 EACH TABLET PO SCH (09:10)
[2020-02-28] MEDS: FERROUS SULFATE 325 MG TABLET PO SCH (09:10)
[2020-02-28] MEDS: DOCUSATE SODIUM 100 MG CAPSULE PO SCH ×2 (09:10→17:21)
--- NOTE | 2020-02-28 09:29 | PDOC PROGRESS REPORT ---
Subjective-OB Progress Note for:: 02/28/20 Subjective: Pt doing well, baby and hsb in room, no c/o, voiding, ambulating Physical Exam (OB) Vital Signs: Temp Pulse Resp BP Pulse Ox 98.0 F 72 16 110/53 L 99 02/28/20 08:00 02/28/20 07:18 02/28/20 07:18 02/28/20 07:18 02/28/20 07:18 Intake & Output 02/27/20 02/28/20 02/29/20 06:59 06:59 06:59 Intake Total 1000 377 Balance 1000 377 Weight 88.9 kg - PIH/Pre-Eclampsia DTR's: 2 + Clonus: Negative Headache: Absent Epigastric Pain: No Visual Changes: No - Maternal Morbidity 59. Maternal Morbidity (serious complications experinced by the mother associated with labor and delivery: None of the above - Lochia Lochia Amount: Scant < 10 ml Lochia Color: Rubra/Red - Abdomen Description: Soft Hernia Present: No Fundal Description: Firm, Midline Fundal Height: u/3 - u/4 Objective-Diagnostic Laboratory: 02/28/20 06:32 02/28/20 06:32 WBC 12.4 H RBC 4.11 Hgb 11.1 L Hct 32.1 L MCV 78 L MCH 27.0 MCHC 34.6 RDW 14.9 H Plt Count 211 Assessment and Plan(PN) - Assessment and Plan (1) GBS (group B Streptococcus carrier), +RV culture, currently Is this a current diagnosis for this admission?: Yes (2) Encounter for induction of labor Is this a current diagnosis for this admission?: Yes (3) Delivery normal Is this a current diagnosis for this admission?: Yes - Time Spent with Patient Time with patient: Less than 15 minutes Medications reviewed and adjusted accordingly: Yes - Disposition Anticipated Discharge Disposition: Home, Self Care Anticipated Discharge Timeframe: within 24 hours
[2020-02-28] MEDS: PRENATAL VITAMIN W DHA CAPSULE PO SCH (10:36)
[2020-02-28] MEDS: PENICILLIN G POTASSIUM 2,500,000 UNIT in DEXTROSE 5%-WATER 50 ML IV SCH (13:19)
[2020-02-29] MEDS: FERROUS SULFATE 325 MG TABLET PO SCH ×2 (03:35→09:25)
[2020-02-29] MEDS: IBUPROFEN 800 MG TABLET PO SCH (05:40)
[2020-02-29 07:51] VITALS: BP 111/72
[2020-02-29] MEDS: PRENATAL VITAMIN W DHA CAPSULE PO SCH (09:25)
[2020-02-29] MEDS: DOCUSATE SODIUM 100 MG CAPSULE PO SCH (09:25)
[2020-02-29] MEDS: SENNOSIDES/DOCUSATE 8.6-50 MG 1 EACH TABLET PO SCH (09:25)
--- NOTE | 2020-02-29 09:44 | PDOC PROGRESS REPORT ---
Subjective-OB Progress Note for:: 02/29/20 Subjective: Doing well, OOB ready to go home, bottle feeding, wearing bra, hsb and baby at bs. scant bleeding, eating and drinking well, Physical Exam (OB) Vital Signs: Temp Pulse Resp BP Pulse Ox 97.7 F 68 16 111/72 97 02/29/20 09:35 02/29/20 07:14 02/29/20 07:14 02/29/20 07:14 02/29/20 07:14 Intake & Output 02/28/20 02/29/20 03/01/20 06:59 06:59 06:59 Intake Total 1377 1160 Balance 1377 1160 - PIH/Pre-Eclampsia DTR's: 2 + Clonus: Negative Headache: Absent Epigastric Pain: No Visual Changes: No - Maternal Morbidity 59. Maternal Morbidity (serious complications experinced by the mother associate d with labor and delivery: None of the above - Lochia Lochia Amount: Small 10-25 ml Lochia Color: Rubra/Red - Abdomen Description: Soft Hernia Present: No Fundal Description: Firm, Midline Fundal Height: u/u - u/2 Objective-Diagnostic Laboratory: 02/28/20 06:32 Assessment and Plan(PN) - Assessment and Plan (1) GBS (group B Streptococcus carrier), +RV culture, currently Is this a current diagnosis for this admission?: Yes (2) Encounter for induction of labor Is this a current diagnosis for this admission?: Yes (3) Delivery normal Is this a current diagnosis for this admission?: Yes - Time Spent with Patient Time with patient: Less than 15 minutes Medications reviewed and adjusted accordingly: Yes - Disposition Anticipated Discharge Disposition: Home, Self Care Anticipated Discharge Timeframe: within 24 hours - no smoking around baby
--- NOTE | 2020-02-29 09:48 | PDOC DISCHARGE SUMMARY ---
Impression - Admit/DC Date/PCP Admission Date/Primary Care Provider: 02/26/20 20:30 DANIA ZAMORANO MD Discharge Date: 02/29/20 - Discharge Diagnosis (1) GBS (group B Streptococcus carrier), +RV culture, currently Is this a current diagnosis for this admission?: Yes (2) Encounter for induction of labor Is this a current diagnosis for this admission?: Yes (3) Delivery normal Is this a current diagnosis for this admission?: Yes - Additional Information Discharge Diet: As Tolerated, Regular Discharge Activity: Pelvic Rest Referrals: DANIA ZAMORANO MD [Primary Care Provider] - (wha 4 weeks) Home Medications: Prenat 115/Iron Fum/Folic/Dss [ 19 Tablet] 1 each PO DAILY 02/26/20 HPI Gestational Age: 40.1 Reason(s) for Admission: Induction of Labor, Group B Strep Positive Procedures: NST, Ultrasound Intrapartum Procedure(s): Spontaneous Vaginal Delivery Hospital Course Hospital Course: routine pp 59. Maternal Morbidity (serious complications experinced by the mother associated with labor and delivery: None of the above Results Laboratory Results: WBC 12.4 10^3/uL (4.0-10.5) H 02/28/20 06:32 RBC 4.11 10^6/uL (3.72-5.28) 02/28/20 06:32 Hgb 11.1 g/dL (12.0-15.5) L 02/28/20 06:32 Hct 32.1 % (36.0-47.0) L 02/28/20 06:32 MCV 78 fl (80-97) L 02/28/20 06:32 MCH 27.0 pg (27.0-33.4) 02/28/20 06:32 MCHC 34.6 g/dL (32.0-36.0) 02/28/20 06:32 RDW 14.9 % (11.5-14.0) H 02/28/20 06:32 Plt Count 211 10^3/uL (150-450) 02/28/20 06:32 Lymph % (Auto) 25.7 % (13-45) 02/26/20 21:20 Whiteside % (Auto) 8.0 % (3-13) 02/26/20 21:20 Eos % (Auto) 0.4 % (0-6) 02/26/20 21:20 Baso % (Auto) 0.2 % (0-2) 02/26/20 21:20 Absolute Neuts (auto) 7.5 10^3/uL (1.7-8.2) 02/26/20 21:20 Absolute Lymphs (auto) 2.9 10^3/uL (0.5-4.7) 02/26/20 21:20 Absolute Monos (auto) 0.9 10^3/uL (0.1-1.4) 02/26/20 21:20 Absolute Eos (auto) 0.0 10^3/uL (0.0-0.6) 02/26/20 21:20 Absolute Basos (auto) 0.0 10^3/uL (0.0-0.2) 02/26/20 21:20 Seg Neutrophils % 65.7 % (42-78) 02/26/20 21:20 Urine Color EMILY 02/26/20 20:42 Urine Appearance CLOUDY 02/26/20 20:42 Urine pH 6.0 (5.0-9.0) 02/26/20 20:42 Ur Specific Coral 1.023 02/26/20 20:42 Urine Protein 30 mg/dL (NEGATIVE) H 02/26/20 20:42 Urine Glucose (UA) NEGATIVE mg/dL (NEGATIVE) 02/26/20 20:42 Urine Ketones TRACE mg/dL (NEGATIVE) H 02/26/20 20:42 Urine Blood NEGATIVE (NEGATIVE) 02/26/20 20:42 Urine Nitrite NEGATIVE (NEGATIVE) 02/26/20 20:42 Urine Bilirubin NEGATIVE (NEGATIVE) 02/26/20 20:42 Urine Urobilinogen 2.0 mg/dL (<2.0) H 02/26/20 20:42 Ur Leukocyte Esterase LARGE (NEGATIVE) H 02/26/20 20:42 Urine Ascorbic Acid 40 (NEGATIVE) H 02/26/20 20:42 Urine Opiates Screen NEGATIVE 02/26/20 20:42 Urine Methadone Screen NEGATIVE 02/26/20 20:42 Ur Barbiturates Screen NEGATIVE 02/26/20 20:42 Ur Phencyclidine Scrn NEGATIVE 02/26/20 20:42 Ur Amphetamines Screen NEGATIVE 02/26/20 20:42 U Benzodiazepines Scrn NEGATIVE 02/26/20 20:42 Urine Cocaine Screen NEGATIVE 02/26/20 20:42 U Marijuana (THC) Screen NEGATIVE 02/26/20 20:42 RPR NONREACTIVE (NONREACTIVE) 02/26/20 21:20 Blood Type O POSITIVE 02/26/20 21:20 Antibody Screen NEGATIVE 02/26/20 21:20 Plan Health Concerns: normal pp Plan of Treatment: dc home, rev S&S to report, desires circ Goals: no complications Time Spent: Less than 30 Minutes
== END 2020-02-29 12:12 | disposition home or self-care (01) | DRG 807 ==
LOC: LR 20:30 → 2S 02-27 21:04
PROVIDERS: ADMIT Obstetrics & Gynecology; ATTEND Obstetrics & Gynecology
PROC: 10E0XZZ Delivery of Products of Conception, External Approach (ICD-10-PCS; principal; 2020-02-27)
DX: O48.0 Post-term pregnancy (principal); Z37.0 Single live birth; O99.824 Streptococcus B carrier state complicating childbirth; O99.334 Smoking (tobacco) complicating childbirth; F17.211 Nicotine dependence, cigarettes, in remission; Z3A.40 40 weeks gestation of pregnancy
CPT/HCPCS: 1967; 36415; 80307; 81005; 85025; 85027; 86592; 86850; 86900; 86901; 94760; J2540; J2590; J2795; J3010; J3490; J7060